=== PATIENT | female | born 2000 | race Hispanic/Latino ===

== ENCOUNTER 2025-06-22 18:07 | Inpatient (IN) | payer OTHER ==
[2025-06-22 18:46] VITALS: BMI 25.7
[2025-06-22] MEDS ORDERED: hydrALAZINE 20 MG/ML VIAL SLOW IVP PRN ×2 (19:07→19:42)
[2025-06-22] MEDS ORDERED: Ondansetron PF 4 MG/2 ML Vial IVP PRN ×2 (19:42→21:04)
[2025-06-22] MEDS ORDERED: Carboprost 250 MCG/ML AMP IM PRN (19:42)
[2025-06-22] MEDS ORDERED: Diphenoxylate HCl/Atropine Tablet PO PRN ×2 (19:42)
[2025-06-22] MEDS ORDERED: Tranexamic Acid 1,000 MG/10 ML VIAL IVP PRN (19:42)
[2025-06-22] MEDS ORDERED: Methylergonovine 0.2 MG/ML VIAL IM PRN (19:42)
[2025-06-22] MEDS ORDERED: Ibuprofen 800 MG TAB PO PRN (19:42)
[2025-06-22] MEDS ORDERED: Lidocaine 1% (PF) 30 ML VIAL SC PRN (19:42)
[2025-06-22] MEDS ORDERED: Acetaminophen 500 MG TAB PO PRN (19:42)
[2025-06-22] MEDS ORDERED: Oxytocin 30 units/NS 500 ML 500 ML IV SCH ×2 (19:45)
[2025-06-22 20:23] LABS: Hematocrit 34.7 % (34.9-44.5); Hemoglobin 12.2 g/dL (12.0-15.5); Mean Corpuscular Hemoglobin 29.3 pg (27.0-33.0); Mean Corpuscular Volume 83.2 fL (81.6-98.3); Platelet Count 305 10x3/uL (150-450); Red Blood Cell (RBC) Count 4.17 10x6/uL (3.90-5.03); White Blood Cell (WBC) Count 13.19 10x3/uL (3.5-10.5)
[2025-06-22] MEDS: fentaNYL/Ropivacaine Epidural 100 ML ONE (20:55)
[2025-06-22 20:57] LABS: Syphilis Antibody Index 0.04 S/CO (<1.00 Non-Reactive)
[2025-06-22 20:59] LABS: HIV (1/2) Antibody/Antigen Non-Reactive (NonReactive); HIV 1/2 INDEX 0.21 S/CO (<1.00); Hep B Surf Ag - L&D Non-Reactive S/CO (NonReactive)
[2025-06-22] MEDS ORDERED: diphenhydrAMINE 50 MG/ML VIAL IVP PRN (21:04)
[2025-06-22] MEDS ORDERED: Acetaminophen 325 MG TAB PO PRN (21:04)
[2025-06-22] MEDS ORDERED: Communication Order-Pharmacy FS SCH (21:15)
[2025-06-22] MEDS ORDERED: fentaNYL 2 mcg/Ropivacaine 0.2% Epidural 100 ML CADD EPIDURAL SCH (21:15)
[2025-06-23] MEDS: Oxytocin 30 units/NS 500 ML 500 ML IV SCH (02:17)
[2025-06-23] MEDS ORDERED: hydrALAZINE 20 MG/ML VIAL SLOW IVP PRN (05:01)
[2025-06-23] MEDS ORDERED: Benzocaine-Menthol 82.5 ML CAN TOP PRN (05:01)
[2025-06-23] MEDS ORDERED: Lanolin Ointment 7 GM TUBE TOP PRN (05:01)
[2025-06-23] MEDS ORDERED: Milk Of Magnesia 30 ML UDCUP PO PRN (05:01)
[2025-06-23] MEDS ORDERED: Preparation H Ointment 28 GM TUBE PR PRN (05:01)
[2025-06-23] MEDS ORDERED: Bisacodyl 10 MG SUPP PR PRN (05:01)
[2025-06-23] MEDS: Ibuprofen 800 MG TAB PO SCH (06:36)
[2025-06-23] MEDS: Ferrous Sulfate 325 MG TAB PO SCH (08:57)
[2025-06-24 08:05] VITALS: BP 100/55; TEMP 98
== END 2025-06-24 13:52 | disposition home or self-care (01) | DRG 807 ==
LOC: CSHLD/OP 18:07 → CSHLD 20:14 → CSHPED 06-23 04:37
PROVIDERS: ADMIT Obstetrics & Gynecology; ATTEND Obstetrics & Gynecology
PROC: 10907ZC Drainage of Amniotic Fluid, Therapeutic from Products of Conception, Via Natural or Artificial Opening (ICD-10-PCS; 2025-06-22)
PROC: 4A1HX4Z Monitoring of Products of Conception, Cardiac Electrical Activity, External Approach (ICD-10-PCS; 2025-06-22)
PROC: 10E0XZZ Delivery of Products of Conception, External Approach (ICD-10-PCS; principal; 2025-06-23)
PROC: 0KQM0ZZ Repair Perineum Muscle, Open Approach (ICD-10-PCS; 2025-06-23)
PROC: 3E0234Z Introduction of Serum, Toxoid and Vaccine into Muscle, Percutaneous Approach (ICD-10-PCS; 2025-06-23)
DX: O76 Abnormality in fetal heart rate and rhythm complicating labor and delivery (principal); Z37.0 Single live birth; Z3A.37 37 weeks gestation of pregnancy; O70.1 Second degree perineal laceration during delivery
CPT/HCPCS: 36415; 51702; 85027; 85461; 86780; 86850; 86870; 86900; 86901; 87340; 87389; 90384; 96372; 99285; J2590; J7120